=== PATIENT | male | born 1995 | race Two or more races ===

== ENCOUNTER 2016-11-04 02:35 | Emergency (ER) | payer MEDICAID, OTHER ==
[~2016-11-04] VITALS: Ht 167.6 cm; Wt 63.5 kg
[2016-11-04 03:43] LABS: Basophils # (auto) 0 uL; Basophils % (auto) 0.1 % (0.0-2.0); CONDITION Y; DEFINITIVE SEE PRINTOUT; Eosinophils # (auto) 0.1 uL; Eosinophils % (auto) 0.9 % (0.0-7.0); Hematocrit 43.7 % (41.0-53.0); Hemoglobin 14.3 g/dL (13.5-17.5); Lymphocytes # (auto) 1.2 uL; Mean Corpuscular Hemoglobin 26.9 pg (28.0-32.0); Mean Corpuscular Hgb Conc. 32.7 g/dL (32.0-36.0); Mean Corpuscular Volume 82.5 fL (80.0-100.0); Mean Platelet Volume 9.1 fL (7.4-10.4); Monocytes # (auto) 0.4 uL; Neutrophils # (auto) 3.9 uL; Platelet Count (auto) 197 10^3/uL (140-450); White Blood Cell 5.6 10^3/uL (4.4-10.8)
[2016-11-04 04:11] LABS: Albumin 4.2 g/dL (3.4-5.0); Alkaline Phosphatase 78 U/L (45-117); Anion Gap 6 (5-15); Aspartate Aminotransferase 13 U/L (15-37); BUN/Creatinine Ratio 17.1; Bilirubin, Total 0.3 mg/dL (0.2-1.0); Blood Urea Nitrogen 14 mg/dL (7-18); Carbon Dioxide 28 mmol/L (21-32); Chloride 103 mmol/L (98-107); GFR African American 151 mL/min; GFR Non-African American 125 mL/min; Glucose 111 mg/dL (74-106); Magnesium 2.3 mg/dL (1.6-2.6); Potassium 4.4 mmol/L (3.5-5.1); Sodium 137 mmol/L (136-145); Total Protein 7.1 g/dL (6.4-8.2)
[2016-11-04 08:23] VITALS: BP 103/58
== END 2016-11-04 09:00 | disposition home or self-care (01) ==
LOC: ER 02:35 → EDBD 02:35 → ER 09:00
DX: R07.89 Other chest pain (principal); R42 Dizziness and giddiness; F41.1 Generalized anxiety disorder
CPT/HCPCS: 36415; 80053; 83735; 84484; 85025; 93005

== ENCOUNTER 2019-05-22 20:27 | Emergency (ER) | payer MEDICAID, OTHER ==
[~2019-05-22] VITALS: Ht 170.2 cm; Wt 59.0 kg
[2019-05-23 00:49] VITALS: BP 119/87
== END 2019-05-23 01:25 | disposition home or self-care (01) ==
LOC: ER 20:34
DX: T26.61XA Corrosion of cornea and conjunctival sac, right eye, initial encounter (principal); Y93.89 Activity, other specified; Y92.89 Other specified places as the place of occurrence of the external cause; Y99.0 Civilian activity done for income or pay

== ENCOUNTER 2021-03-15 09:15 | Emergency (ER) | payer OTHER ==
[~2021-03-15] VITALS: Ht 170.2 cm; Wt 63.5 kg
[2021-03-15 12:25] VITALS: BP 109/65
== END 2021-03-15 13:05 | disposition home or self-care (01) ==
LOC: ER 09:15
DX: S00.01XA Abrasion of scalp, initial encounter (principal); W20.8XXA Other cause of strike by thrown, projected or falling object, initial encounter; Y93.89 Activity, other specified; Y92.89 Other specified places as the place of occurrence of the external cause; Y99.8 Other external cause status